=== PATIENT | female | born 1995 | race Caucasian/White ===

== ENCOUNTER 2016-12-05 06:25 | Emergency (ER) | payer OTHER ==
[~2016-12-05] VITALS: Ht 167.6 cm; Wt 90.0 kg
[~2016-12-05 06:25] MED LIST: FERR-83 PO
[2016-12-05 06:28] VITALS: BP 137/98; PULSE 85; RESP 16; O2SAT 98
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
[2016-12-05 10:02] VITALS: BP 136/80; PULSE 50; RESP 16; O2SAT 98
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
== END 2016-12-05 10:03 | disposition home or self-care (01) ==
LOC: SED 06:25 → EDUNIT# 06:25 → EDBD 06:25 → SED 10:03
DX: S16.1XXA Strain of muscle, fascia and tendon at neck level, initial encounter (principal); S39.012A Strain of muscle, fascia and tendon of lower back, initial encounter; V47.6XXA Car passenger injured in collision with fixed or stationary object in traffic accident, initial encounter; Y92.411 Interstate highway as the place of occurrence of the external cause; Y93.89 Activity, other specified; Y99.8 Other external cause status; I10 Essential (primary) hypertension; D53.9 Nutritional anemia, unspecified; J45.909 Unspecified asthma, uncomplicated; F41.9 Anxiety disorder, unspecified; Z88.1 Allergy status to other antibiotic agents